=== PATIENT | male | born 1980 | race Caucasian/White ===

== ENCOUNTER 2017-01-02 19:11 | Emergency (ER) | payer OTHER, MEDICARE ==
[~2017-01-02] VITALS: Ht 180.3 cm; Wt 90.7 kg
[2017-01-02] MEDS ORDERED: PANT20TA PO (19:21)
[2017-01-02] MEDS ORDERED: LAMI1TAB7 PO (19:21)
[2017-01-02] MEDS ORDERED: KETOROLAC 60 MG/2 ML VIAL (J1885) IM ONE (21:00)
[2017-01-02] MEDS ORDERED: CLINDAMYCIN 150 MG CAP PO ONE (21:00)
[2017-01-02] MEDS ORDERED: CLEO300C2 PO (21:03)
[2017-01-02 21:36] VITALS: BP 146/70
== END 2017-01-02 21:37 | disposition home or self-care (01) ==
LOC: EEVIPCON 20:14 → M ED 20:14
DX: L02.511 Cutaneous abscess of right hand (principal); L03.211 Cellulitis of face; R21 Rash and other nonspecific skin eruption; K21.9 Gastro-esophageal reflux disease without esophagitis; F32.9 Major depressive disorder, single episode, unspecified; Z88.0 Allergy status to penicillin; Z79.899 Other long term (current) drug therapy
CPT/HCPCS: 87070; 87077; 87186; 87205; 96372; 99282; J1885